=== PATIENT | female | born 1950 | race Caucasian/White ===

== ENCOUNTER 2023-11-25 07:54 | Inpatient (IN) | payer OTHER, MEDICARE, SELFPAY ==
--- NOTE | 2023-11-05 08:58 | CM ---
Addendum entered by REMA Rivera 11/17/23 12:30:
Patient surgery moved to 11/25/23.
Original Note:
Patient is scheduled for lumbar spine surgery on 12/09/23. Spoke with patient prior to surgery via telephone. Introduced role of the Orthopedic Navigator. Patient reports that she lives with her in a two story home. There are two steps to
enter and a flight of steps to the second floor. She currently functions independently. She has crutches. She has never had VN services. PCP is Luis Adrian.
Discussed orthopedic program, post surgical plans and tentative plan for patient to return home when directed by surgeon. Patient is in agreement with tentative plan and will have support from her when she goes home.
Plan: Orthopedic Navigator will remain available to assist with the care of patient and will reassess discharge needs after surgery.
[2023-11-17 08:20] VITALS: BMI 27.3
[2023-11-17 09:03] LABS: Hematocrit 41.8 % (37.0-47.0); Hemoglobin 13.9 g/dL (12.0-16.0); Mean Corp Hgb Conc. 33.3 g/dL (33.0-37.0); Mean Corpuscular Hgb 27.1 pg (27.0-31.0); Mean Corpuscular Volume 81.5 fL (81.0-99.0); Mean Platelet Volume 10.9 fL (7.4-10.4); Platelet Count 366 10^3/uL (130-400); Red Blood Cell Count 5.13 10^6/uL (4.20-5.40); Red Cell Dist. Width 14.7 % (11.5-14.5); White Blood Cell Count 10.5 10^3/uL (4.8-10.8)
[2023-11-17 09:42] LABS: ALT (SGPT) 32 U/L (0-35); AST (SGOT) 42 U/L (14-36); Albumin 4.3 g/dl (3.5-5.0); Alkaline Phosphatase 97 U/L (38-126); Blood Urea Nitrogen 17 mg/dl (7-17); Calcium 9.5 mg/dl (8.4-10.2); Carbon Dioxide 26 mmol/L (22-30); Chloride 106 mmol/L (98-107); Estimated Creatinine Clearance 56 ml/min; Glucose 94 mg/dl (70-99); Potassium 5.1 mmol/L (3.5-5.1); Sodium 140 mmol/L (135-145); Total Bilirubin 0.6 mg/dl (0.2-1.3); Total Protein 6.7 g/dl (6.3-8.2); eGFR > 60.00
[2023-11-18 08:22] VITALS: BMI 27.3
[2023-11-25] VITALS (15 sets, daily range): BP systolic 119–188; BP diastolic 65–99; BMI 27.3
[2023-11-25] MEDS: TYLENOL 1000 MG PO ×2 (08:55→17:25)
[2023-11-25] MEDS: SKELAXIN 800 MG PO (08:56)
[2023-11-25] MEDS: CELEBREX 200 MG PO (08:56)
[2023-11-25] MEDS: LYRICA 150 MG PO (08:56)
[2023-11-25] MEDS: NORMOSOL-R 1000 IV ×2 (08:57→14:50)
[2023-11-25] MEDS: VANCOCIN 200 IV ×2 (10:02→21:28)
--- NOTE | 2023-11-25 14:15 | W.PN.UPDATE ---
Update Note
Progress Note Update
Lumbar spondylolisthesis and stenosis with neurogenic claudication s/p L4-L5 laminectomy and L4-S1 fusion w/ Dr Butler 11/25/23
DVT prophylaxis - b/l SCDs/TEDs
Pre-op chest pain - likely musculoskeletal as described as 'pulling' and quickly resolved on it own - no further reported episodes since
- EKG w/ sinus bradycardia, making cardiac cause less likely
- Monitor for now
GERD and Hiatal hernia - continue PPI therapy
Mildly elevated AST - reduce max dose of Tylenol daily
Hyperlipidemia
Childhood heart murmur
Chronic dyspnea on exertion secondary to recent deconditioning
Diverticulosis
Irritable bowel syndrome
Lactose intolerance
Migraines, improving with Botox
Chronic neck pain
Rheumatoid arthritis
Osteoarthritis
Endometriosis
Overactive bladder with nocturia
Basal cell carcinoma, status post excision
Anxiety with panic attacks
Depression
Osteoporosis
Recent history of tobacco abuse
Cannabis dependence
[2023-11-25] MEDS: DILAUDID 0.25 MG IV ×2 (14:34→14:44)
--- NOTE | 2023-11-25 15:24 | PTCARENOTE ---
Pt arrived to [facility] s/p L4-5 laminectomy, and L4-S1 fusion. Middle lower back dressing C/D/I, NV intact, IVF infusing on 2L NC satting 95%. Pt states mild pain at this time. Oriented to call snow and room, bed in lowest position and locked, call
snow within reach.
[2023-11-25] MEDS: SENOKOT 17.1999999999999993 MG PO ×2 (17:24→19:58)
[2023-11-25] MEDS: COLACE 100 MG PO ×2 (17:24→19:58)
[2023-11-25] MEDS: VITAMIN D3 (cholecalciferol) 50 MCG PO (17:25)
[2023-11-25] MEDS: PROTONIX 40 MG PO (17:25)
[2023-11-25] MEDS: LIPITOR 40 MG PO (17:25)
[2023-11-25] MEDS: PROZAC 60 MG PO (17:25)
[2023-11-25] MEDS: ZYRTEC 10 MG PO (17:25)
[2023-11-25] MEDS: ROXICODONE 10 MG PO (17:28)
[2023-11-25] MEDS: LYRICA 75 MG PO (21:28)
[2023-11-26] MEDS: TYLENOL 1000 MG PO ×2 (00:03→08:11)
[2023-11-26] MEDS: NORMOSOL-R 1000 IV (00:04)
[2023-11-26] MEDS: ROXICODONE 5 MG PO (03:38)
[2023-11-26 04:17] VITALS: BP 133/68
[2023-11-26] MEDS: ROXICODONE 10 MG PO ×2 (05:23→09:56)
[2023-11-26 06:06] LABS: Hematocrit 34.7 % (37.0-47.0); Hemoglobin 11.4 g/dL (12.0-16.0)
[2023-11-26 06:35] LABS: Blood Urea Nitrogen 16 mg/dl (7-17); Calcium 8.3 mg/dl (8.4-10.2); Carbon Dioxide 22 mmol/L (22-30); Chloride 104 mmol/L (98-107); Estimated Creatinine Clearance 75 ml/min; Glucose 113 mg/dl (70-99); Potassium 4.4 mmol/L (3.5-5.1); Sodium 135 mmol/L (135-145); eGFR > 60.00
[2023-11-26 07:10] VITALS: BP 127/69
[2023-11-26] MEDS: SENOKOT PO (07:37)
[2023-11-26] MEDS: COLACE PO (07:37)
[2023-11-26] MEDS: LYRICA 75 MG PO (08:11)
[2023-11-26] MEDS: PROZAC 60 MG PO (08:12)
[2023-11-26] MEDS: LIPITOR 40 MG PO (08:12)
[2023-11-26] MEDS: ZYRTEC 10 MG PO (08:12)
[2023-11-26] MEDS: PROTONIX 40 MG PO (08:12)
[2023-11-26] MEDS: SENOKOT 17.1999999999999993 MG PO (08:12)
[2023-11-26] MEDS: VITAMIN D3 (cholecalciferol) 50 MCG PO (08:12)
[2023-11-26] MEDS: COLACE 100 MG PO (08:12)
--- NOTE | 2023-11-26 08:38 | CM ---
Reviewed chart and held rounds with PT, OT and RN. Patient had planned lumbar spine surgery with Dr. Butler on 07/08. Met with patient at bedside. Confirmed information previously obtained for assessment and discussed discharge plans. Patient continues
to plan to return home at discharge. She is concerned about going home today due to the amount of pain she is having. She will have support from her when she goes home. Reviewed that she will work with PT/OT this morning and that discharge
needs will depend on her functional status. However, no needs currently identified.
Patient states that she may have a rolling walker at home; she will ask her to check just in case this is needed.
Patient will use [facility] pharmacy for discharge prescriptions.
--- NOTE | 2023-11-26 08:42 | CM ---
Addendum entered by Caren Alva 11/26/23 11:40:
Patient did well in therapy. She has no concerns about going home and has no discharge planning needs. Her was able to locate her walker. She would like her present for discharge instructions; RN aware.
Original Note:
Reviewed chart and held rounds with PT, OT and RN. Patient had planned lumbar spine surgery with Dr. Butler on 11/24. Met with patient at bedside. Confirmed information previously obtained for assessment and discussed discharge plans. Patient continues
to plan to return home at discharge. She is concerned about going home today due to the amount of pain she is having. She will have support from her when she goes home. Reviewed that she will work with PT/OT this morning and that discharge
needs will depend on her functional status. However, no needs currently identified.
Patient states that she may have a rolling walker at home; she will ask her to check just in case this is needed.
Patient will use [facility] pharmacy for discharge prescriptions.
[2023-11-26 09:33] VITALS: BP 102/73; BP 120/74; BP 121/75; BP 132/67; PULSE 83; PULSE 90; PULSE 97; O2SAT 91
--- NOTE | 2023-11-26 10:38 | W.PN.ORTHO ---
Today's Communication / Plan
-
Await PT recs.
D/c possible for later today if remaining clinically stable.
Assessment
.
Distal Motor Intact: Yes
Dressing:
Clean, dry and intact.
Assessment:
Lumbar spondylolisthesis and stenosis with neurogenic claudication s/p L4-L5 laminectomy and L4-S1 fusion w/ Dr Butler 11/25/23
DVT prophylaxis - b/l SCDs/TEDs
Pre-op chest pain - likely musculoskeletal as described as 'pulling' and quickly resolved on it own - no further reported episodes since
- EKG w/ sinus bradycardia, making cardiac cause less likely. No significant change since her pre-op EKG
GERD and Hiatal hernia - continue PPI therapy
Mildly elevated AST - reduced max dose of Tylenol daily
Hyperlipidemia
Childhood heart murmur
Chronic dyspnea on exertion secondary to recent deconditioning
Diverticulosis
Irritable bowel syndrome
Lactose intolerance
Migraines, improving with Botox
Chronic neck pain
Rheumatoid arthritis
Osteoarthritis
Endometriosis
Overactive bladder with nocturia
Basal cell carcinoma, status post excision
Anxiety with panic attacks
Depression
Osteoporosis
Recent history of tobacco abuse
Cannabis dependence
Plan
.
Surgery / Date: L4-L5 laminectomy and L4-S1 fusion w/ Dr Butler 11/24
DVT Prophylaxis: Other (b/l SCDs/TEDs)
Activity:
Out of bed.
PT/OT
Discharge Plan: Home
Subjective
.
.:
Patient examined resting in her chair.
Reports significant low back pain; however, pain noted be improving w/ Oxycodone as needed.
Did well w/ OT this AM despite reports of pain.
Urinary retention post-op requiring straight cath x1; improved by this AM.
Vital Signs and Labs
.
Vital Signs and Labs:
Lab Results
11/26/23 04:21
11/26/23 04:21
Temp Pulse Resp BP Pulse Ox
100.1 F 68 18 127/69 97
11/26/23 07:10 11/26/23 07:10 11/26/23 07:10 11/26/23 07:10 11/26/23 08:00
Physical Exam
-
HEENT: No pallor, cyanosis, or jaundice. Throat clear.
NECK: Supple. No JVD.
RESPIRATORY: Lungs clear to auscultation.
CVS: S1, S2 normal. RRR.�
ABDOMEN: Soft, non-tender. No distension.
EXTREMITIES: Strength equal, no calf pain with palpation/dorsiflexion.
CAMPUS RECEPTIONIST: AOx3. No focal deficits. special assets officer grossly intact
--- NOTE | 2023-11-26 10:51 | W.DS.TRANS ---
DC Summary - Geography Head
-
Discharge Instructions:
Sleep Apnea Risk Low
Discharge Diagnosis/Procedures Lumbar spondylolisthesis and stenosis with
neurogenic claudication s/p L4-L5 laminectomy
and L4-S1 fusion w/ Dr Butler 11/25/23
Diet Regular
Activity As tolerated
Additional Activity No heavy lifting >10 lbs
Driving Restrictions Not until seen by your Dr
Bathing Restrictions OK to shower in 4 days
Instructions:
Stand-Alone Forms: [facility]
Changes to Home Medications: Yes
Discharge Medications:
DC Medications w/original date entered in [email or web address]
ascorbic acid (vitamin C) 1,000 mg tablet (Vitamin C) 1,000 mg PO DAILY 11/13/23
atorvastatin 40 mg tablet (Lipitor) 40 mg PO DAILY 11/13/23
cetirizine 10 mg tablet (Zyrtec) 10 mg PO DAILY allergies 11/13/23
cholecalciferol (vitamin D3) 50 mcg (2,000 unit) capsule (Vitamin D3) 50 mcg PO DAILY 11/13/23
fluoxetine 40 mg capsule (Prozac) 60 mg PO DAILY 11/13/23
omeprazole 40 mg capsule,delayed release 40 mg PO DAILY 11/13/23
turmeric 1 tab PO DAILY 11/13/23
Delta 8 0.5 gummy PO DAILYPRN PRN pain 11/17/23
biotin 1,000 mcg chewable tablet 1,000 mcg PO DAILY 11/17/23
Saccharomyces boulardii 250 mg capsule (Florastor) 250 mg PO BID #10 caps 11/26/23
acetaminophen 500 mg tablet (Tylenol Extra Strength) 1,000 mg (2 x 500 mg) PO Q8H #60 tabs 11/26/23
clindamycin HCl 300 mg capsule 300 mg PO Q6H #20 caps 11/26/23
docusate sodium 100 mg capsule 100 mg PO BID #30 caps 11/26/23
ondansetron HCl 4 mg tablet 4 mg PO Q6H PRN nausea and vomiting #30 tabs 11/26/23
oxycodone 5 mg tablet 5 - 10 mg (1 - 2 x 5 mg) PO Q6H PRN moderate-severe pain #30 tabs 11/26/23
pregabalin 75 mg capsule 75 mg PO BID neuropathic pain #15 caps 11/26/23
sennosides 8.6 mg tablet (Senna Laxative) 17.2 mg (2 x 8.6 mg) PO BID #30 tabs 11/26/23
Home Medication Changes
Saccharomyces boulardii 250 mg capsule (Florastor) 250 mg PO BID #10 caps 11/26/23
acetaminophen 500 mg tablet (Tylenol Extra Strength) 1,000 mg (2 x 500 mg) PO Q8H #60 tabs 11/26/23
clindamycin HCl 300 mg capsule 300 mg PO Q6H #20 caps 11/26/23
docusate sodium 100 mg capsule 100 mg PO BID #30 caps 11/26/23
ondansetron HCl 4 mg tablet 4 mg PO Q6H PRN nausea and vomiting #30 tabs 11/26/23
oxycodone 5 mg tablet 5 - 10 mg (1 - 2 x 5 mg) PO Q6H PRN moderate-severe pain #30 tabs 11/26/23
pregabalin 75 mg capsule 75 mg PO BID neuropathic pain #15 caps 11/26/23
sennosides 8.6 mg tablet (Senna Laxative) 17.2 mg (2 x 8.6 mg) PO BID #30 tabs 11/26/23
Pending Results: No
[2023-11-26] MEDS: NORMOSOL-R IV (10:59)
[2023-11-26 11:00] VITALS: BP 123/72
[2023-11-26 11:08] VITALS: BP 135/74; PULSE 68
== END 2023-11-26 12:47 | disposition home or self-care (01) | DRG 460 ==
LOC: 2 SOUTH 07:54
PROVIDERS: Physician Assistant; ADMITTING PHYSICIAN Orthopaedic Surgery Orthopaedic Surgery of the Spine; FAMILY PHYSICIAN Family Medicine
PROC: 0SG30J1 Fusion of Lumbosacral Joint with Synthetic Substitute, Posterior Approach, Posterior Column, Open Approach (ICD-10-PCS; 2023-11-25)
PROC: 01NB0ZZ Release Lumbar Nerve, Open Approach (ICD-10-PCS; 2023-11-25)
PROC: 0SG00J1 Fusion of Lumbar Vertebral Joint with Synthetic Substitute, Posterior Approach, Posterior Column, Open Approach (ICD-10-PCS; 2023-11-25)
DX: M43.16 Spondylolisthesis, lumbar region (principal); M48.061 Spinal stenosis, lumbar region without neurogenic claudication; E78.5 Hyperlipidemia, unspecified; K21.9 Gastro-esophageal reflux disease without esophagitis; K44.9 Diaphragmatic hernia without obstruction or gangrene; E73.9 Lactose intolerance, unspecified; G43.909 Migraine, unspecified, not intractable, without status migrainosus; G89.29 Other chronic pain; M54.2 Cervicalgia; M06.9 Rheumatoid arthritis, unspecified; M19.90 Unspecified osteoarthritis, unspecified site; N32.81 Overactive bladder; R35.1 Nocturia; F41.0 Panic disorder [episodic paroxysmal anxiety]; F32.A Depression, unspecified; M81.0 Age-related osteoporosis without current pathological fracture; R74.01 Elevation of levels of liver transaminase levels; F12.20 Cannabis dependence, uncomplicated; N80.9 Endometriosis, unspecified; R06.09 Other forms of dyspnea; Z85.828 Personal history of other malignant neoplasm of skin; Z87.891 Personal history of nicotine dependence; Z87.19 Personal history of other diseases of the digestive system; Z88.5 Allergy status to narcotic agent; Z88.0 Allergy status to penicillin
CPT/HCPCS: 36415; 72100; 76000; 80048; 80053; 85014; 85018; 85027; 87070; 93005; 97116; 97163; 97166; 97530; 97535; C1713; C1776

== ENCOUNTER 2024-11-14 06:49 | Day surgery (SDC) | payer OTHER, MEDICARE, SELFPAY ==
[2024-11-14] VITALS (11 sets, daily range): BP systolic 17–177; BP diastolic 77–125; BMI 27.2
[2024-11-14] MEDS: PERIDEX 0.12% ORAL RINSE 15 ML PO (07:49)
[2024-11-14] MEDS: BACTROBAN NASAL 1 GRAM NASAL (07:49)
[2024-11-14] MEDS: NSS 500 IV (07:49)
[2024-11-14 07:55] LABS: Hematocrit 39.5 % (37.0-47.0); Hemoglobin 13.6 g/dL (12.0-16.0); Mean Corp Hgb Conc. 34.4 g/dL (33.0-37.0); Mean Corpuscular Hgb 27.6 pg (27.0-31.0); Mean Corpuscular Volume 80.3 fL (81.0-99.0); Mean Platelet Volume 11.3 fL (7.4-10.4); Platelet Count 334 10^3/uL (130-400); Red Blood Cell Count 4.92 10^6/uL (4.20-5.40); Red Cell Dist. Width 14.6 % (11.5-14.5); White Blood Cell Count 19.1 10^3/uL (4.8-10.8)
--- NOTE | 2024-11-14 07:58 | PTCARENOTE ---
Pt here for temporal artery bypass. Dr Dinh at pt bedside. Dr Dinh made aware of WBC 19.1 (pt on prednisone) and pt's blood [id number] on right and 177/125 on left. No further treatment ordered at this time. Will continue to monitor.
[2024-11-14 08:02] LABS: INR 0.96; PT 13.1 Sec (11.4-14.6)
[2024-11-14 08:03] LABS: APTT 25.3 Sec (23.4-35.0)
[2024-11-14 08:07] LABS: Blood Urea Nitrogen 21 mg/dl (7-17); Calcium 9.1 mg/dl (8.4-10.2); Carbon Dioxide 28 mmol/L (22-30); Chloride 108 mmol/L (98-107); Estimated Creatinine Clearance 64 ml/min; Potassium 3.4 mmol/L (3.5-5.1); Sodium 141 mmol/L (135-145); eGFR > 60.00
[2024-11-14 08:16] LABS: Glucose 117 mg/dl (70-99)
--- NOTE | 2024-11-14 08:30 | W.SUR.PREOP ---
Pre-Operative Surgical Note
-
I have examined this patient prior to the performance of the scheduled procedure.
The patient's condition is unchanged from the time of the current History and
Physical and the patient is able to undergo the scheduled procedure.
--- NOTE | 2024-11-14 09:20 | W.SUR.POST ---
Surgical Immediate Post Op
Note
Pre Op Diagnosis: Headache, r/o GCA
Post Op Diagnosis: Same
Procedure Performed: Right temporal artery biopsy
Primary Surgeon: Laura
Secondary Surgeons: Alicia PGY5
Anesthesia: local and sedation
Estimated Blood Loss: <2cc
Fluids: See anesthesia flow sheet
Drains/Shunts: None
Specimens/Cultures: R temporal artery
Doppler/Duplex/Angio (Y/N): Y
Complications: None
Operative Findings: successful biopsy
--- NOTE | 2024-11-14 09:23 | OR.RPT ---
Operative Report
Operative Report
Date of Operation: 11/14/2024
Pre Op Diagnosis: Suspected temporal arteritis
Post Op Diagnosis: Suspected temporal arteritis
Procedure: RIGHT temporal artery biopsy
Surgeon: Luis Sanchez III, MD
Rn Lab: Damian Vargas MD, PGY5
Anesthesia: Sedation/local
Complications: None
Estimated Blood Loss: Less than 5 cc
History and Indications for Procedure: 74-year-old female with symptom constellation concerning for temporal arteritis. We were asked to provide temporal artery biopsy.
Procedure in Detail: Louie Hernandez was correctly identified and placed supine on the operating table. After adequate induction of anesthesia, the right temporal pulse was palpated. The right temporal region was then shaved. The temporal artery
pulse was marked and then the temporal region was prepped and draped in the usual sterile fashion. A time-out procedure was performed with the nursing and anesthesia staff confirming the patient's identity as well as nature and laterality of the
procedure. An incision was made over the marked temporal pulse. Careful sharp dissection and electrocautery were used to dissect down to the temporal artery. Adequate length of specimen was then sharply dissected out and the proximal and distal
artery was ligated with silk ties. The intervening segment of artery was then removed after ligating the proximal and distal ends. The artery segment was identified and then passed off to the back table to be sent to pathology. Hemostasis was then
achieved within the wound bed. The wound was irrigated with warm saline solution. The wound was closed in layers and sterile skin glue was applied. The patient tolerated the procedure well and was taken to the recovery room in good condition.
Attestation: I was present and responsible for the entire procedure.
Signed:
Luis Sanchez III, MD
[facility] Vascular Surgery
[phone] (ocyq)
[2024-11-14] MEDS: TYLENOL 650 MG PO (10:10)
== END 2024-11-14 10:44 | disposition home or self-care (01) ==
LOC: CATH 06:49
PROVIDERS: ATTENDING PHYSICIAN Surgery Vascular Surgery; PRIMARYCARE PHYSICIAN Family Medicine
DX: R51.9 Headache, unspecified (principal); Z13.89 Encounter for screening for other disorder; Z79.82 Long term (current) use of aspirin; Z79.52 Long term (current) use of systemic steroids; Z79.899 Other long term (current) drug therapy; F17.210 Nicotine dependence, cigarettes, uncomplicated
CPT/HCPCS: 37609; 88305; 80048; 85027; 85610; 85730; 88313; 93005